=== PATIENT | female | born 1950 | race Two or more races ===

== ENCOUNTER 2016-09-07 19:14 | Inpatient (IN) | payer MEDICARE, BC ==
[~2016-09-07] VITALS: Ht 157.5 cm; Wt 51.3 kg
[2016-09-07 19:47] LABS: BASOPHILS % (AUTO) 0.4 % (0.0-2.0); EOSINOPHILS # (AUTO) 0.4 /CMM (0.0-0.7); EOSINOPHILS % (AUTO) 6.8 % (0.0-6.0); HEMATOCRIT 31 % (33-45); HEMOGLOBIN 10.3 g/dL (11.5-14.8); LYMPHOCYTES # (AUTO) 1.7 /CMM (0.8-4.8); MEAN CORPUSCULAR HEMOGLOBIN 30 PG (26.0-33.0); MEAN CORPUSCULAR HGB CONC 33 g/dl (31.0-36.0); MEAN CORPUSCULAR VOLUME 90 fL (82-100); MONOCYTES # (AUTO) 0.7 /CMM (0.1-1.30); MONOCYTES % (AUTO) 11.7 % (2.0-12.0); NEUTROPHILS # (AUTO) 3.6 /CMM (1.8-8.9); NEUTROPHILS % (AUTO) 54.1 % (43.0-81.0); PLATELET COUNT (AUTO) 351 /CMM (150-450); RDW COEFFICIENT OF VARIATION 15.4 (11.5-15.0); RED BLOOD CELL COUNT(AUTO) 3.48 MIL/uL (4.0-5.2); WHITE BLOOD COUNT (AUTO) 6.4 K/uL (4.3-11.0)
[2016-09-07 19:55] LABS: APPEARANCE,URINE Clear (CLEAR); BILIRUBIN,URINE Negative (NEGATIVE); BLOOD, URINE Trace-lysed Ery/uL (NEGATIVE); COLOR,URINE Yellow (YELLOW); KETONES,URINE Negative (NEGATIVE); LEUKOCYTE ESTERASE ,URINE Trace (NEGATIVE); NITRITE, URINE Negative (NEGATIVE); PH,URINE 5.5 (5.0-8.0); PROTEIN,URINE Negative (NEGATIVE); UGLUCOSE Negative (NEGATIVE); UROBILINOGEN,URINE 0.2 EU/dL (0.2)
[2016-09-07 20:03] LABS: ALANINE AMINOTRANSFERASE 21 U/L (12-78); ALBUMIN 3.5 g/dL (3.4-5.0); ALCOHOL, BLOOD < 3 mg/dL (0-0); ALKALINE PHOSPHATASE 60 U/L (46-116); ASPARTATE AMINOTRANSFERASE 19 U/L (15-37); BILIRUBIN,DIRECT 0.1 mg/dL (0.0-0.2); BILIRUBIN,TOTAL 0.2 mg/dL (0.2-1.0); CALCIUM, SERUM 8.3 mg/dL (8.5-10.1); CARBON DIOXIDE 28 mmol/L (21-32); CHLORIDE 105 mmol/L (98-107); GLUCOSE 51 mg/dL (74-106); POTASSIUM 3.9 mmol/L (3.5-5.1); SODIUM SERUM 140 mmol/L (136-145); TOTAL PROTEIN, SERUM 7.2 g/dL (6.4-8.2); UREA NITROGEN, BLOOD 24 mg/dL (7-18)
[2016-09-07 20:07] LABS: ACETAMINOPHEN < 2 ug/ml (10-30); SALICYLATE 1.1 mg/dL (2.8-20.0)
[2016-09-07 20:12] LABS: BACTERIA,URINE Few /HPF (None Seen); SQUAMOUS EPITHELIAL CELL,UR Few /HPF (None Seen)
--- NOTE | 2016-09-07 20:38 | NUR ---
PT PLACED ON 5150 HOLD BY [facility] CLINICAL ELECTRONIC SCANNER OPERATOR.
[2016-09-07] MEDS ORDERED: QUET50TA PO (20:46)
[2016-09-07] MEDS ORDERED: LOSA50TA21 PO (20:46)
[2016-09-07] MEDS ORDERED: MULT1TAB73 PO (20:46)
[2016-09-07] MEDS ORDERED: FLUO40CA49 PO (20:46)
--- NOTE | 2016-09-07 20:56 | NUR ---
REPORT GIVEN TO LANI JAILER.
[2016-09-07] MEDS ORDERED: ACETAMINOPHEN 325 MG TABLET PO PRN (21:30)
[2016-09-07] MEDS ORDERED: MAG HYDROX/AL HYDROX/SIMETH 30 ML UDC PO PRN (21:30)
[2016-09-07] MEDS ORDERED: MAGNESIUM HYDROXIDE 30 ML UDC PO PRN (21:30)
[2016-09-07] MEDS ORDERED: TEMAZEPAM 7.5 MG CAPSULE PO PRN (21:30)
[2016-09-07] MEDS ORDERED: DOCU-170 PO (21:45)
[2016-09-07] MEDS ORDERED: RIVA1PAT3 TD (21:45)
[2016-09-07 22:00] VITALS: BP 118/73
--- NOTE | 2016-09-07 22:26 | NUR ---
GPS RN ADMITTED NOTES ADMITTED THIS 66Y/O FEMALE FROM [facility] ER ,PT INITIALLY CAME FROM [facility] , PT. CAME TO THE UNIT VIA [employer] ACCOMPANIED ER STAFF PT. IS ON 5150 HOLD GRAVELY DISABLE, PER HOLD FOR AGITATED, AGGRESSIVE , CONFUSED , COMBATIVE ,POOR HISTORIAN , AND THREATENING BOARD AND CARE WHERE SHE LIVES ,UPON FACE TO FACE ASSESSMENT PT. A/O , AMBULATORY UNABLE TO FOLLOW COMMANDS AND UNCOOPERATIVE AGGRESSIVE , MENTAL HX OF DEPRESSION, DEMENTIA .MEDICAL HX OF HTN , SKIN/ BODY ASSESSMENT DONE BOTH UPPER AND LOWER EXTRMITES REDNESS NOTED , PICTURE TAKEN AND PLACED IN THE CHART , MRSA SCREENING DONE IN ER ,BOTH MD AWARE OF NEW ADMISSION NEW ORDERS RECEIVED AND CARRIED OUT, REORIENT TO UNIT POLICES AND CONTRABAND CHECKS , WILL CONTINUE TO MONITOR FOR SAFETY AND BEHAVIOR .
--- NOTE | 2016-09-08 06:48 | NUR ---
RN GPS NOTE PT .REMAINED IN STABLE CONDITION RESTING IN HIS BED ,NO ACUTE DISTRESS NOTED ATTENDED ALL NEEDS AND ANTICIPATED , DENIES SI/ HI AT THIS TIME, PT WEAR 2 YELLOW RINGS WITH WHITE STONE PT. PT WANTS TO KEEP IT. DOCUMENT IN THE BELONGINGS LIST AND ENDORSE TO NEXT SHIFT NURSE. WILL ENDORSE TO NEXT SHIFT FOR CONTINUITY OF CARE
[2016-09-08 07:05] LABS: BASOPHILS % (AUTO) 0.9 % (0.0-2.0); EOSINOPHILS # (AUTO) 0.4 /CMM (0.0-0.7); EOSINOPHILS % (AUTO) 7.1 % (0.0-6.0); HEMATOCRIT 31 % (33-45); HEMOGLOBIN 10.3 g/dL (11.5-14.8); LYMPHOCYTES # (AUTO) 1.3 /CMM (0.8-4.8); LYMPHOCYTES % (AUTO) 24.2 % (20.0-44.0); MEAN CORPUSCULAR HEMOGLOBIN 30 PG (26.0-33.0); MEAN CORPUSCULAR HGB CONC 33 g/dl (31.0-36.0); MEAN CORPUSCULAR VOLUME 89 fL (82-100); MONOCYTES # (AUTO) 0.5 /CMM (0.1-1.30); MONOCYTES % (AUTO) 9.2 % (2.0-12.0); NEUTROPHILS # (AUTO) 3.2 /CMM (1.8-8.9); NEUTROPHILS % (AUTO) 58.6 % (43.0-81.0); PLATELET COUNT (AUTO) 297 /CMM (150-450); RDW COEFFICIENT OF VARIATION 16.4 (11.5-15.0); WHITE BLOOD COUNT (AUTO) 5.4 K/uL (4.3-11.0)
[2016-09-08 07:32] LABS: ALBUMIN 3.2 g/dL (3.4-5.0); BILIRUBIN,TOTAL 0.2 mg/dL (0.2-1.0); CALCIUM, SERUM 8.7 mg/dL (8.5-10.1); CREATININE 0.7 mg/dL (0.6-1.3); POTASSIUM 4.4 mmol/L (3.5-5.1); TOTAL PROTEIN, SERUM 6.8 g/dL (6.4-8.2)
[2016-09-08 08:00] VITALS: BP 123/85
[2016-09-08] MEDS: RIVASTIGMINE TARTRATE 4.6 MG PATCH.TD24 TD SCH (08:52)
[2016-09-08] MEDS: THIAMINE HCL 100 MG TABLET PO SCH (08:52)
[2016-09-08] MEDS: DOCUSATE SODIUM 100 MG CAPSULE PO SCH ×2 (08:52→16:45)
[2016-09-08] MEDS: LOSARTAN POTASSIUM 50 MG TABLET PO SCH (08:53)
[2016-09-08] MEDS ORDERED: MULTIVITAMINS,THERAGRAN 1 UDTAB TABLET PO SCH (09:00)
--- NOTE | 2016-09-08 09:00 | NUR ---
[id number]: PT IS CALM AND COOPERATIVE WITH STAFF. NO ACUTE DISTRESS NOTED AT THIS TIME. NO COMPLAIN OF PAIN OR DISCOMFORT AT THIS TIME. ENCOURAGE PT TO VERBALIZE EMOTIONS AND CONCERNS. WILL CONTINUE TO MONITOR FOR SAFETY AND BEHAVIOR EVERY 15 MINUTES.
[2016-09-08] MEDS: LORAZEPAM 0.5 MG TABLET PO PRN (13:48)
--- NOTE | 2016-09-08 13:48 | NUR ---
[id number]: PT RECEIVED A PHONE CALL FROM WHO NOTIFIED PT THAT THEY ARE GETTING A DIVORCE AND PT YELLED TO HER THAT SHE IS GOING TO KILL HERSELF. WENT TO ASSESS PT AND ASK HER IF SHE HAS ANY THOUGHTS OF HURTING HERSELF OR OTHERS. PT DENIES SI/HI AT THIS TIME. PT STATED, "I DON'T EVEN REMEMBER TELLING HIM THAT BUT I PROBABLY SAID BECAUSE I WAS MAD BUT I AM NOT ANYMORE. I DON'T WANT TO HURT MYSELF OR OTHER PEOPLE." PROVIDE A CALM AND QUIET ENVIRONMENT IN PT'S ROOM. PT SIGNED SAFETY CONTRACT AND PT IS AWARE THAT AT ANYTIME DURING HER HOSPITAL STAY IF PT HAS ANY THOUGHTS OF HURTING HERSELF TO LET STAFF KNOW. GAVE ATIVAN 0.5 MG PO DUE TO INCREASE ANXIETY UPON PT REQUEST AND WILL CONTINUE TO MONITOR FOR EFFECTIVENESS OF MEDICATION. DR. GROVES IS MADE AWARE. WILL CONTINUE TO MONITOR FOR SAFETY AND BEHAVIOR EVERY 15 MINUTES.
--- NOTE | 2016-09-08 14:00 | NUR ---
[id number]: PT WAS WILLING TO PLACE TWO YELLOW RINGS ON THE SAFE. DOCUMENTED AND SIGNED BY PT.
[2016-09-08] MEDS: FLUOXETINE HCL 20 MG CAPSULE PO SCH (15:45)
[2016-09-08 16:00] VITALS: BP 124/90
[2016-09-08 20:03] VITALS: BP 149/100
[2016-09-08] MEDS ORDERED: QUETIAPINE FUMARATE 25 MG TABLET PO SCH (22:00)
[2016-09-09 08:00] VITALS: BP 119/77
[2016-09-09] MEDS: FOLIC ACID 1 MG TABLET PO SCH (08:30)
[2016-09-09] MEDS: THIAMINE HCL 100 MG TABLET PO SCH (08:30)
[2016-09-09] MEDS: FLUOXETINE HCL 20 MG CAPSULE PO SCH (08:31)
[2016-09-09] MEDS: MULTIPLE VIT (LYCOPENE/FA/MV,CA,IRON,MIN/LUT)1 TAB PO SCH (08:31)
[2016-09-09] MEDS: DOCUSATE SODIUM 100 MG CAPSULE PO SCH ×2 (08:31→18:36)
[2016-09-09] MEDS: RIVASTIGMINE TARTRATE 4.6 MG PATCH.TD24 TD SCH (08:31)
[2016-09-09] MEDS: LOSARTAN POTASSIUM 50 MG TABLET PO SCH (08:31)
[2016-09-09] MEDS: LORAZEPAM 0.5 MG TABLET PO PRN (08:38)
--- NOTE | 2016-09-09 08:38 | NUR ---
administered ativan 0.5 mg po prn for anxiety, v/s taken bp-119/77, p-80, continued monitoring.
--- NOTE | 2016-09-09 12:40 | NUR ---
Initial DC Plan: Patient's reported address is [address] [place] [id number]; [phone] but patient reported this is her home address. Per [facility] hold, patient came from a board and care but information is not listed. SW attempted to contact the patient's Cisco Rossi ([phone]) to verify her placement but he did not answer (line kept ringing and no option to leave a message). Per psychiatrist, patient in need of possible alternate placement and SW will attempt to call the patient's again at a later time. Patient will be given alcohol cessation resources prior to discharge.
[2016-09-09] MEDS: QUETIAPINE FUMARATE 25 MG TABLET PO SCH ×2 (12:52→21:33)
[2016-09-09 16:18] VITALS: BP 131/71
--- NOTE | 2016-09-09 19:30 | NUR ---
GPS RN NOTE, RECEIVED PATIENT AWAKE AND IN BED, NO S/S OR COMPLAINTS OF PAIN AT THIS TIME. PATIENT IS DISPLAYING NO S/S OF APPARENT DISTRESS AT THIS TIME. PATIENT BREATHING IS UNLABORED WITH EQUAL RISE AND FALL OF THE CHEST. PATIENT IS ALERT AND ORIENTED X 3 ON ROOM AIR WITH A SPO2 96%. PATIENT COMPLAINT WITH MEDICATION, ANXIOUS, COOPERATIVE, CALM, AND NEEDS REORIENTATION. PATIENT DENIES SUICIDE AND HOMICIDAL IDEATIONS AT THIS TIME. PATIENT ASSISTED WITH TURNING AND REPOSITIONING Q2HR AND PRN FOR COMFORT AND CIRCULATION. PATIENT HAS NO NEEDS AT THIS TIME. PATIENT EDUCATED ON THE USE OF THE CALL BAILEY. PATIENT BED SIDE RAILS UP X2 FOR SAFETY, BED IS LOCKED AND LOW WILL CONTINUE TO MONITOR AND MAINTAIN SAFETY.
[2016-09-09 20:17] VITALS: BP 124/82
[2016-09-10] MEDS: LOSARTAN POTASSIUM 50 MG TABLET PO SCH (07:57)
[2016-09-10] MEDS: THIAMINE HCL 100 MG TABLET PO SCH (07:57)
[2016-09-10] MEDS: FLUOXETINE HCL 20 MG CAPSULE PO SCH (07:58)
[2016-09-10] MEDS: QUETIAPINE FUMARATE 25 MG TABLET PO SCH ×3 (07:58→21:32)
[2016-09-10] MEDS: FOLIC ACID 1 MG TABLET PO SCH (07:58)
[2016-09-10] MEDS: DOCUSATE SODIUM 100 MG CAPSULE PO SCH ×2 (07:58→16:59)
[2016-09-10] MEDS: MULTIPLE VIT (LYCOPENE/FA/MV,CA,IRON,MIN/LUT)1 TAB PO SCH (07:58)
[2016-09-10 08:00] VITALS: BP 145/68
[2016-09-10] MEDS: RIVASTIGMINE TARTRATE 4.6 MG PATCH.TD24 TD SCH (08:05)
--- NOTE | 2016-09-10 10:51 | NUR ---
STEPHANI called the patient's (soon to be ex-) Cisco Bassett ([phone]) who informed SW that patient was residing at a [facility] [place]. He provided placement agent information for [facility] [phone]. STEPHANI spoke with Pauly Galvan who informed STEPHANI that she has been residing at [facility] (Auto Job Estimator Richy- [phone]). She also provided telephone number to the patient's brother Jan ([phone]). Stephani attempted to contact the senior backup administrator Richy but he did not answer and STEPHANI left a message with her contact information. STEPHANI will follow up.
--- NOTE | 2016-09-10 11:24 | NUR ---
Received call back from community administrator Richy- [phone] from [facility] ([address] [place] [address]) who stated that the patient is able to return to their board and care when she is ready to be discharged. STEPHANI will provide her with advanced notice and she stated they are not able to transport the patient back. She stated that STEPHANI can call the patient's brother Jan ([phone]) to obtain more information. Intake at [facility] stated Sylvia ([phone]) from [facility] can provide information in regards to transportation however STEPHANI called this number and spoke to Claudine who stated that their facility does not provide transportation. STEPHANI contacted the patient's brother Jan who stated that he is willing to pay for transportation. STEPHANI informed him that she is able to arrange the transportation with [facility] and they can call him with a quote. He agreed and STEPHANI will contact [facility] to follow up with the brother.
[2016-09-10 16:00] VITALS: BP 125/74
[2016-09-10 20:45] VITALS: BP 105/64
--- NOTE | 2016-09-11 07:30 | NUR ---
alert and oriented x2,med compliant. vs stable.
[2016-09-11] MEDS: THIAMINE HCL 100 MG TABLET PO SCH (09:38)
[2016-09-11] MEDS: DOCUSATE SODIUM 100 MG CAPSULE PO SCH ×2 (09:38→18:31)
[2016-09-11] MEDS: MULTIPLE VIT (LYCOPENE/FA/MV,CA,IRON,MIN/LUT)1 TAB PO SCH (09:38)
[2016-09-11] MEDS: LOSARTAN POTASSIUM 50 MG TABLET PO SCH (09:39)
[2016-09-11] MEDS: QUETIAPINE FUMARATE 25 MG TABLET PO SCH ×4 (09:39→21:55)
[2016-09-11] MEDS: FOLIC ACID 1 MG TABLET PO SCH (09:39)
[2016-09-11] MEDS: FLUOXETINE HCL 20 MG CAPSULE PO SCH (09:39)
[2016-09-11] MEDS: RIVASTIGMINE TARTRATE 4.6 MG PATCH.TD24 TD SCH (09:40)
--- NOTE | 2016-09-11 13:55 | NUR ---
Per Rafael from [employer] ([phone]) the brother and him agreed on a barrera for transportation back to [place] and will keep him posted as to discharge date.
[2016-09-11 16:34] VITALS: BP 132/89
--- NOTE | 2016-09-11 17:30 | NUR ---
out at desk,became very agitated about belongings,propellant charge loader spoke with pt. and told her they,re in safe and that she could not have jewelery at this time,unless spouse signed waiver. pt. reassured,and consoled.seemed to be ok with that.
--- NOTE | 2016-09-11 18:30 | NUR ---
mrsa swab done,lab alerted to pick remover specimen.
[2016-09-11 20:00] VITALS: BP 106/76
[2016-09-11 20:02] VITALS: BP 106/76
[2016-09-12 08:30] VITALS: BP_SYST 115; BP_DIAS 70; BP_DIAS 77
[2016-09-12] MEDS: FLUOXETINE HCL 20 MG CAPSULE PO SCH (08:34)
[2016-09-12] MEDS: FOLIC ACID 1 MG TABLET PO SCH (08:34)
[2016-09-12] MEDS: MULTIPLE VIT (LYCOPENE/FA/MV,CA,IRON,MIN/LUT)1 TAB PO SCH (08:34)
[2016-09-12] MEDS: QUETIAPINE FUMARATE 25 MG TABLET PO SCH ×4 (08:34→21:55)
[2016-09-12] MEDS: THIAMINE HCL 100 MG TABLET PO SCH (08:34)
[2016-09-12] MEDS: LOSARTAN POTASSIUM 50 MG TABLET PO SCH (08:34)
[2016-09-12] MEDS: DOCUSATE SODIUM 100 MG CAPSULE PO SCH ×2 (08:35→17:00)
[2016-09-12] MEDS: RIVASTIGMINE TARTRATE 4.6 MG PATCH.TD24 TD SCH (08:35)
--- NOTE | 2016-09-12 15:34 | NUR ---
Per psychiatrist, patient will be ready to discharge on Friday September 16, 2016. STEPHANI spoke with Rafael from [employer] and scheduled transportation for 1pm back to the patient's board and care [facility] ([address] [place] [address]). STEPHANI to inform patient's brother Jan ([phone]) about discharge back to her board and care and will also notify the board and care of the patient's return.
[2016-09-12 16:36] VITALS: BP 91/61
[2016-09-12 16:38] VITALS: BP 91/61
[2016-09-12 20:00] VITALS: BP 100/67
[2016-09-13 08:00] VITALS: BP 114/75
[2016-09-13] MEDS: LOSARTAN POTASSIUM 50 MG TABLET PO SCH (08:13)
[2016-09-13] MEDS: FOLIC ACID 1 MG TABLET PO SCH (08:13)
[2016-09-13] MEDS: QUETIAPINE FUMARATE 25 MG TABLET PO SCH ×4 (08:13→21:24)
[2016-09-13] MEDS: RIVASTIGMINE TARTRATE 4.6 MG PATCH.TD24 TD SCH (08:13)
[2016-09-13] MEDS: THIAMINE HCL 100 MG TABLET PO SCH (08:13)
[2016-09-13] MEDS: MULTIPLE VIT (LYCOPENE/FA/MV,CA,IRON,MIN/LUT)1 TAB PO SCH (08:13)
[2016-09-13] MEDS: DOCUSATE SODIUM 100 MG CAPSULE PO SCH ×2 (08:16→16:38)
[2016-09-13] MEDS: Fluoxetine 10 mg capsule PO SCH (09:01)
--- NOTE | 2016-09-13 13:54 | NUR ---
STEPHANI spoke with nursing service administrator Richy- [phone] from [facility] ([address] [place] [address]) who informed him of the patient's discharge on Friday. Patient's brother Jan ([phone]) was also notified and agrees with the discharge plan. He asked for H&P, progress notes, and med list to be faxed to the [facility] and STEPHANI will fax paperwork when the patient is being discharged on Friday. Will obtain fax # from [facility]. Patient's (soon to be ex) Cisco Rossi ([phone]) was informed via voicemail. STEPHANI confirmed [employer] transportation at 1pm pickup on September 16, 2016 back to the patient's board and care.
[2016-09-13 16:00] VITALS: BP 121/81
[2016-09-13 20:00] VITALS: BP 106/69
--- NOTE | 2016-09-14 06:33 | NUR ---
RN GPS NOTE PT .REMAINED IN STABLE CONDITION RESTING IN HER BED ,NO ACUTE DISTRESS NOTED ATTENDED ALL NEEDS AND ANTICIPATED , DENIES SI/ HI AT THIS TIME, ENDORSE TO NEXT SHIFT NURSE. WILL ENDORSE TO NEXT SHIFT FOR CONTINUITY OF CARE
[2016-09-14 08:00] VITALS: BP 115/68
[2016-09-14] MEDS: RIVASTIGMINE TARTRATE 4.6 MG PATCH.TD24 TD SCH (08:40)
[2016-09-14] MEDS: FOLIC ACID 1 MG TABLET PO SCH (08:40)
[2016-09-14] MEDS: LOSARTAN POTASSIUM 50 MG TABLET PO SCH (08:41)
[2016-09-14] MEDS: Fluoxetine 10 mg capsule PO SCH (08:41)
[2016-09-14] MEDS: MULTIPLE VIT (LYCOPENE/FA/MV,CA,IRON,MIN/LUT)1 TAB PO SCH (08:41)
[2016-09-14] MEDS: DOCUSATE SODIUM 100 MG CAPSULE PO SCH ×2 (08:41→16:33)
[2016-09-14] MEDS: THIAMINE HCL 100 MG TABLET PO SCH (08:42)
[2016-09-14] MEDS: QUETIAPINE FUMARATE 25 MG TABLET PO SCH ×4 (08:42→21:34)
[2016-09-14 16:00] VITALS: BP 110/68
[2016-09-14 20:00] VITALS: BP 106/72
--- NOTE | 2016-09-14 20:00 | NUR ---
RN INITIAL NOTES: RECEIVED PT IN BED, A/O X3, DENIES PAIN OR DISCOMFORT AT THIS TIME, DENIES ANY SI/HI, PT IS MEDICATION COMPLIANT, AMBULATORY,COOPERATIVE,NO DENTURES, PT STATED SHE FEELS SOMEWHAT BETTER, WILL CONTINUE MONITORING PT [id number] FOR SAFETY AND ANY CHANGES IN BEHAVIOR
--- NOTE | 2016-09-15 06:38 | NUR ---
rn closing notes: pt in bed, awake, remains a/o x3, med complaint, denies any pain or discomfort at this time, no untoward event happened throughout the shift, vs remains stable, needs attended, will endorse to day rn for roney.
[2016-09-15 08:00] VITALS: BP 120/66
[2016-09-15] MEDS: THIAMINE HCL 100 MG TABLET PO SCH (09:01)
[2016-09-15] MEDS: DOCUSATE SODIUM 100 MG CAPSULE PO SCH ×2 (09:01→16:41)
[2016-09-15] MEDS: MULTIPLE VIT (LYCOPENE/FA/MV,CA,IRON,MIN/LUT)1 TAB PO SCH (09:01)
[2016-09-15] MEDS: Fluoxetine 10 mg capsule PO SCH (09:01)
[2016-09-15] MEDS: FOLIC ACID 1 MG TABLET PO SCH (09:01)
[2016-09-15] MEDS: QUETIAPINE FUMARATE 25 MG TABLET PO SCH ×4 (09:02→21:10)
[2016-09-15] MEDS: LOSARTAN POTASSIUM 50 MG TABLET PO SCH (09:02)
[2016-09-15] MEDS: RIVASTIGMINE TARTRATE 4.6 MG PATCH.TD24 TD SCH (09:02)
[2016-09-15 16:00] VITALS: BP 119/76
[2016-09-15 20:11] VITALS: BP 146/91
[2016-09-16 08:00] VITALS: BP 123/86
[2016-09-16] MEDS: QUETIAPINE FUMARATE 25 MG TABLET PO SCH ×4 (08:51→21:25)
[2016-09-16] MEDS: RIVASTIGMINE TARTRATE 4.6 MG PATCH.TD24 TD SCH (08:51)
[2016-09-16] MEDS: Fluoxetine 10 mg capsule PO SCH (08:51)
[2016-09-16] MEDS: THIAMINE HCL 100 MG TABLET PO SCH (08:52)
[2016-09-16] MEDS: FOLIC ACID 1 MG TABLET PO SCH (08:52)
[2016-09-16] MEDS: LOSARTAN POTASSIUM 50 MG TABLET PO SCH (08:52)
[2016-09-16] MEDS: DOCUSATE SODIUM 100 MG CAPSULE PO SCH ×2 (08:52→16:41)
[2016-09-16] MEDS: MULTIPLE VIT (LYCOPENE/FA/MV,CA,IRON,MIN/LUT)1 TAB PO SCH (08:52)
--- NOTE | 2016-09-16 10:16 | NUR ---
TSEPHANI spoke with commercial property administrator Richy- [phone] from [facility] ([address] [place] [address]) who informed him of the patient's discharge on Friday09/17/16. STEPHANI faxed ([phone]) paperwork (H&P, Progress note, and med list) to Richy from [facility]. Richy requested that med list be sent to [facility] Mar[facility] in [place] (phone: [phone]/ ) [facility] [place] [address].
--- NOTE | 2016-09-16 10:25 | NUR ---
SW attempted to contact patient's brother Jan ([phone]) to notify him that patient will be discharged Friday09/16/16. However, patient's brother was unavailable, SW left him a voicemail with detailed information and contact number. SW will attempt again later.
[2016-09-16 16:00] VITALS: BP 130/83
[2016-09-16 19:51] VITALS: BP 120/58
[2016-09-17 08:00] VITALS: BP 105/70
[2016-09-17] MEDS: RIVASTIGMINE TARTRATE 4.6 MG PATCH.TD24 TD SCH (08:29)
[2016-09-17] MEDS: THIAMINE HCL 100 MG TABLET PO SCH (08:29)
[2016-09-17 08:30] VITALS: BP 105/70
[2016-09-17] MEDS: QUETIAPINE FUMARATE 25 MG TABLET PO SCH (08:30)
[2016-09-17] MEDS: LOSARTAN POTASSIUM 50 MG TABLET PO SCH (08:30)
[2016-09-17] MEDS: MULTIPLE VIT (LYCOPENE/FA/MV,CA,IRON,MIN/LUT)1 TAB PO SCH (08:30)
[2016-09-17] MEDS: Fluoxetine 10 mg capsule PO SCH (08:30)
[2016-09-17] MEDS: DOCUSATE SODIUM 100 MG CAPSULE PO SCH (08:30)
[2016-09-17] MEDS: FOLIC ACID 1 MG TABLET PO SCH (08:30)
--- NOTE | 2016-09-17 11:15 | NUR ---
GPS/RN PATIENT CLEARED FOR DISCHARGE TO [facility] ([address] [place] [address], [place] [id number] ) BY DR GROVES AND DR NÚÑEZ. DISCHARGE PAPERWORK SIGNED, BELONGINGS RETURNED AND SIGNED FOR BY PATIENT, PRESCRIPTIONS AND PACKET EXPLAINED TO PATIENT, VERBALIZED UNDERSTANDING, PRESCRIPTIONS FAXED TO [facility]. PATIENT DENIES SI/HI/AH AT TIME OF DISCHARGE, PSYCHIATRIC TREATMENT PLANS MET, LEFT UNIT VIA WHEELCHAIR, CALM, COOPERATIVE, NO DISTRESS, WITH PUJA FROM [employer] [facility] ([address] [place], [place] [id number] [phone]) Addendum: 09/17/16 at 141 by JT OLGUIN RN PRESCRIPTIONS FAXED TO [facility] in [place] (phone: [phone]/ ) [place] [address]. Addendum: 09/17/16 at 8435 by JT OLGUIN RN PATIENT STATED THAT SHE HAS NO OUTSIDE PSYCHIATRIST, Patient was referred to [facility] ([phone]) [place] [address].
--- NOTE | 2016-09-17 15:38 | NUR ---
Discharge Note: Patient was discharged to [facility] ([address] [place] [address]) patient's brother Jan ([phone]) was notified. Patient and patient's brother were agreeable with the discharge plan. Patient mood and affect were appropriate upon discharge. Patient denied suicidal and homicidal ideations. Patient was referred to [facility] ([phone]) [address] [place] [address]. kettle worker referred [facility] for a walk in intake appointment for Friday09/24/16 at 8:30am at [address] [address]. Facilitated info to IDT team who are in agreement with discharge arrangement. The multidisciplinary exitcare form was done, printed, signed, and given to the patient.
--- NOTE | 2016-09-18 16:53 | NUR ---
TEJINDER received a call from medical records administrator Richy- [phone] from [facility] ([address] [place] [address]) who stated that patient was acting out at the [facility]. Tejinder advised Richy that of he felt patient was a danger to herself or someone else he can call 911 or take her to the closest emergency hospital. Richy was agreeable and content with the information given.
== END 2016-09-17 11:15 | disposition home or self-care (01) | DRG 885 ==
LOC: ER 19:18 → GPS 20:53
PROVIDERS: ADMIT Psychiatry & Neurology Psychosomatic Medicine; ATTEND Nurse Practitioner Acute Care
DX: F33.3 Major depressive disorder, recurrent, severe with psychotic symptoms (principal); E51.2 Wernicke's encephalopathy; F03.91 Unspecified dementia, unspecified severity, with behavioral disturbance; F29 Unspecified psychosis not due to a substance or known physiological condition; D63.8 Anemia in other chronic diseases classified elsewhere; F10.20 Alcohol dependence, uncomplicated; I10 Essential (primary) hypertension; Z79.899 Other long term (current) drug therapy; Z73.6 Limitation of activities due to disability; R79.89 Other specified abnormal findings of blood chemistry
CPT/HCPCS: 36415; 80048-TC; 80053-TC; 80061-TC; 80076-TC; 80305; 81000-TC; 84425; 85025-TC; 87081-TC; A4606; G0480; Z7610